=== PATIENT | male | born 1935 | race Caucasian/White ===

== ENCOUNTER 2017-09-20 07:39 | Emergency (ER) | payer MEDICARE, BC ==
[2017-09-20] MEDS ORDERED: Lidocaine 2% Jelly 10 ML Urojet MUCMEM ONE (08:39)
--- NOTE | 2017-09-20 08:47 | EDM.PDOC ---
ED HPI GENERAL MEDICAL PROBLEM - General Chief Complaint: Genitourinary Problem Stated Complaint: CANNOT PASS URINE Time Seen by Provider: 09/20/17 08:47 Source of Information: Reports: Patient History Limitations: Reports: No Limitations - History of Present Illness INITIAL COMMENTS - FREE TEXT/NARRATIVE: pt arrived unable to void. He has been passing blood for the past 3days. He has done this off and on t in the past few monthes. He was seen in [place] yesterday and had a cat scan of the abdoman which showed a clot or mas in the bladder. He was still voidimng at that time. He is quite uncomfortble . Onset: Gradual, Other (past 2-3 days. ) Duration: Hour(s): Location: Reports: Other ( Uncomfortable over the bladder. ) - Related Data Allergies Allergy/AdvReac Type Severity Reaction Status Date / Time chlorthalidone Allergy Intermediate Muscle Verified 09/20/17 08:05 Aches finasteride Allergy Intermediate Muscle Verified 09/20/17 08:05 Aches hydrochlorothiazide Allergy Intermediate Muscle Verified 09/20/17 08:05 Aches sulfamethoxazole Allergy Intermediate Muscle Verified 09/20/17 08:05 [From Bactrim] Aches trimethoprim [From Bactrim] Allergy Intermediate Muscle Verified 09/20/17 08:05 Aches Home Meds: Home Meds Aspirin 81 mg PO DAILY 02/10/13 [History] Fexofenadine [Leigha] 180 mg PO DAILY 02/10/13 [History] LORazepam [Ativan] 1 mg PO Q8H PRN 02/10/13 [History] Lisinopril 20 mg PO BID 02/10/13 [History] Omeprazole 20 mg PO DAILY 02/10/13 [History] Simvastatin [Zocor] 20 mg PO BEDTIME 02/10/13 [History] amLODIPine [Norvasc] 5 mg PO BID 02/10/13 [History] metFORMIN HCl [Metformin HCl] 500 mg PO BID 02/10/13 [History] Metoprolol Succinate [Toprol XL] 50 mg PO DAILY 05/03/13 [History] Acetaminophen [Tylenol] 650 mg PO Q6H PRN 11/01/15 [History] Ydxdc-B-Jydlpbenyymen [Beano] 1 tab PO ASDIRECTED PRN 11/01/15 [History] Past Medical History HEENT History: Reports: Allergic Rhinitis, Hard of Hearing, Impaired Vision Cardiovascular History: Reports: High Cholesterol, Hypertension Gastrointestinal History: Reports: Colon Polyp, GERD Genitourinary History: Reports: BPH, Renal Calculus Musculoskeletal History: Reports: Back Pain, Chronic, Fracture, Osteoarthritis Psychiatric History: Reports: Anxiety Endocrine/Metabolic History: Reports: Diabetes, Type II Oncologic (Cancer) History: Reports: Other (See Below) Other Oncologic History: colon - Infectious Disease History Infectious Disease History: Reports: Chicken Pox, Measles, Mumps - Past Surgical History GI Surgical History: Reports: Colonoscopy, Other (See Below) Other GI Surgeries/Procedures: colon resection Male Surgical History: Reports: Prostate Biopsy, TURP-Transurethral Resection of Prostate Social & Family History - Tobacco Use Smoking Status *Q: Current Every Day Smoker Years of Tobacco use: 50 Packs/Tins Daily: 0.5 - Recreational Drug Use Recreational Drug Use: No ED ROS GENERAL - Review of Systems Review Of Systems: See Below Constitutional: Reports: No Symptoms HEENT: Reports: No Symptoms Respiratory: Reports: No Symptoms Cardiovascular: Reports: No Symptoms Endocrine: Reports: No Symptoms GI/Abdominal: Reports: Other (pain over the bladder. ) : Reports: Hematuria, Urinary Retention Musculoskeletal: Reports: No Symptoms Skin: Reports: No Symptoms ED EXAM, GI/ABD - Physical Exam Exam: See Below Text/Narrative:: Pt arrived uncomfortable because he was not able to void. He was at the [facility] yesterday and had a cat scan of the abdoman which showed a filling defect in the bladder which may have been clot but could be tissue. He was sent home and he was unable to void. Exam Limited By: No Limitations General Appearance: Alert, Moderate Distress Ears: Normal TMs Nose: Normal Inspection Throat/Mouth: Normal Inspection Head: Atraumatic Neck: Normal Inspection Respiratory/Chest: No Respiratory Distress Cardiovascular: Regular Rate, Rhythm GI/Abdominal Exam: Other (Pt is tender over the bladder. ) (Male) Exam: Other ( Urine is very bloody and he is only able to void in small ampounts. ) Rectal (Males) Exam: Deferred Extremities: Normal Inspection Neurological: Alert, Oriented, Normal Cognition Psychiatric: Normal Affect Course - Vital Signs Last Recorded V/S: Last Vital Signs Temp 36.7 C 09/20/17 10:18 Pulse 59 L 09/20/17 10:18 Resp 16 09/20/17 10:18 BP 133/62 09/20/17 10:18 Pulse Ox 95 09/20/17 10:18 - Orders/Labs/Meds Labs: Laboratory Tests 09/20/17 09/20/17 Range/Units 08:53 08:53 WBC 10.8 (4.5-11.0) K/uL RBC 3.98 L (4.30-5.90) M/uL Hgb 12.0 D (12.0-15.0) g/dL Hct 35.3 L (40.0-54.0) % MCV 89 (80-98) fL MCH 30 (27-31) pg MCHC 34 (32-36) % Plt Count 318 (150-400) K/uL Neut % (Auto) 76 H (36-66) % Lymph % (Auto) 16 L (24-44) % [place] % (Auto) 8 H (2-6) % Eos % (Auto) 0 L (2-4) % Baso % (Auto) 0 (0-1) % Sodium 125 L (140-148) mmol/L Potassium 4.4 (3.6-5.2) mmol/L Chloride 91 L (100-108) mmol/L Carbon Dioxide 24 (21-32) mmol/L Anion Gap 14.4 H (5.0-14.0) mmol/L BUN 15 (7-18) mg/dL Creatinine 0.9 (0.8-1.3) mg/dL Est Cr Clr Drug Dosing 63.32 mL/min Estimated GFR (MDRD) > 60 (>60) Glucose 156 H (74-106) mg/dL Calcium 8.6 (8.5-10.1) mg/dL Meds: Medications Discontinued Medications Generic Name Dose Route Start Last Admin Trade Name Freq PRN Reason Stop Dose Admin Lidocaine HCl 10 ml 09/20/17 08:39 09/20/17 09:27 Xylocaine 2% Jelly MUCMEM 09/20/17 08:40 10 ml ONETIME ONE Administration - Re-Assessments/Exams Free Text/Narrative Re-Assessment/Exam: 09/20/17 10:37 Pt did void a very small amount and it was very bloody. A attempt was made to put in a 3 way cath to irrigate and it would not pass--size 20. A 16 cath with a tapered tip did pass. His bladder was irrigated and his urine appears to be draining well. Dr ramos was consulted regarding the situation. 09/20/17 10:55pt was found to have hyponatremia in [place] and he continues to have a low na. Departure - Departure Time of Disposition: 10:40 Disposition: Home, Self-Care 01 Condition: Fair Clinical Impression: Hematuria, Urinary retention, Bladder filling defect, Hyponatremia - Discharge Information Referrals: Mode Hussein MD [Primary Care Provider] - Forms: ED Department Discharge Care Plan Goals: If [place] drains well over the week end call urology office early Friday am and indicate that he needs to be seen soon for a cysto. Dr Ramos --Urologist was consulted and he felt the pt could be seen on Friday if the cath continues to drain over the weekend. If it does get blocked up and is not draining then he should go to The ER in [place] and Dr Ramos needs to be called for a cysto and care. leg bag, norco 5/325 q6h prn for pain. Push fluids.
[2017-09-20] MEDS ORDERED: Lidocaine 2% Jelly 10 ML Urojet ONE (09:51)
[2017-09-20 10:19] VITALS: BP 133/62
== END 2017-09-20 11:40 | disposition home or self-care (01) ==
LOC: JP.ED 07:39
DX: R33.9 Retention of urine, unspecified (principal); R31.9 Hematuria, unspecified; R93.41 Abnormal radiologic findings on diagnostic imaging of renal pelvis, ureter, or bladder; E87.1 Hypo-osmolality and hyponatremia; F17.210 Nicotine dependence, cigarettes, uncomplicated; E11.9 Type 2 diabetes mellitus without complications; I10 Essential (primary) hypertension; E78.00 Pure hypercholesterolemia, unspecified; M19.90 Unspecified osteoarthritis, unspecified site; K21.9 Gastro-esophageal reflux disease without esophagitis; Z79.82 Long term (current) use of aspirin; Z79.84 Long term (current) use of oral hypoglycemic drugs; Z79.899 Other long term (current) drug therapy; Z88.2 Allergy status to sulfonamides; Z88.1 Allergy status to other antibiotic agents; Z88.8 Allergy status to other drugs, medicaments and biological substances
CPT/HCPCS: 36415; 51798; 80048; 85025; 99284-25

== ENCOUNTER 2017-10-07 16:40 | Emergency (ER) | payer MEDICARE, BC ==
--- NOTE | 2017-10-07 18:12 | EDM.PDOC ---
ED HPI GENERAL MEDICAL PROBLEM - General Chief Complaint: Genitourinary Problem Stated Complaint: BLOOD URINE Time Seen by Provider: 10/07/17 17:00 Source of Information: Reports: Patient, Family History Limitations: Reports: No Limitations - History of Present Illness INITIAL COMMENTS - FREE TEXT/NARRATIVE: 82-year-old male who recently underwent some genitourinary procedures has been avoiding activity for the past 2 weeks, but apparently got the okay from the urology department to become more active so today he did yard work and was bouncing on the tractor etc. and developed hematuria. He has now lower abdominal pain, any bladder distention, and gross hematuria but decreased output. No fevers or chills. Severity: Moderate Associated Symptoms: Denies: Chest Pain, Malaise, Shortness of Breath Bladder Pain Score (Numeric/FACES): 4 - Related Data Allergies Allergy/AdvReac Type Severity Reaction Status Date / Time chlorthalidone Allergy Intermediate Muscle Verified 10/07/17 16:58 Aches finasteride Allergy Intermediate Muscle Verified 10/07/17 16:58 Aches hydrochlorothiazide Allergy Intermediate Muscle Verified 10/07/17 16:58 Aches sulfamethoxazole Allergy Intermediate Muscle Verified 10/07/17 16:58 [From Bactrim] Aches trimethoprim [From Bactrim] Allergy Intermediate Muscle Verified 10/07/17 16:58 Aches Home Meds: Home Meds Aspirin 81 mg PO DAILY 02/10/13 [History] Fexofenadine [Leigha] 180 mg PO DAILY 02/10/13 [History] LORazepam [Ativan] 1 mg PO Q8H PRN 02/10/13 [History] Lisinopril 20 mg PO BID 02/10/13 [History] Omeprazole 20 mg PO DAILY 02/10/13 [History] Simvastatin [Zocor] 20 mg PO BEDTIME 02/10/13 [History] amLODIPine [Norvasc] 5 mg PO BID 02/10/13 [History] metFORMIN HCl [Metformin HCl] 500 mg PO BID 02/10/13 [History] Metoprolol Succinate [Toprol XL] 50 mg PO DAILY 05/03/13 [History] Acetaminophen [Tylenol] 650 mg PO Q6H PRN 11/01/15 [History] Yruti-L-Ooclhreouavra [Beano] 1 tab PO ASDIRECTED PRN 11/01/15 [History] Past Medical History HEENT History: Reports: Allergic Rhinitis, Hard of Hearing, Impaired Vision Cardiovascular History: Reports: High Cholesterol, Hypertension Gastrointestinal History: Reports: Colon Polyp, GERD Genitourinary History: Reports: BPH, Renal Calculus Musculoskeletal History: Reports: Back Pain, Chronic, Fracture, Osteoarthritis Psychiatric History: Reports: Anxiety Endocrine/Metabolic History: Reports: Diabetes, Type II Oncologic (Cancer) History: Reports: Other (See Below) Other Oncologic History: colon - Infectious Disease History Infectious Disease History: Reports: Chicken Pox, Measles, Mumps - Past Surgical History GI Surgical History: Reports: Colonoscopy, Other (See Below) Other GI Surgeries/Procedures: colon resection Male Surgical History: Reports: Prostate Biopsy, TURP-Transurethral Resection of Prostate ED ROS GENERAL - Review of Systems Review Of Systems: See Below Constitutional: Denies: Fever, Chills Respiratory: Denies: Shortness of Breath Cardiovascular: Denies: Chest Pain GI/Abdominal: Denies: Abdominal Pain Skin: Reports: Pallor Neurological: Denies: Headache ED EXAM, RENAL/ - Physical Exam Exam: See Below Exam Limited By: No Limitations General Appearance: Alert, Mild Distress (Looks uncomfortable) Respiratory/Chest: No Respiratory Distress Cardiovascular: Regular Rate, Rhythm GI/Abdominal: Distended (Patient has distention of the lower abdomen with palpation tenderness likely bladder distention) (Male) Exam: Suprapubic Fullness Neurological: Alert, Oriented Psychiatric: Normal Affect, Normal Mood Skin Exam: Warm, Dry, Pallor Course - Vital Signs Last Recorded V/S: Last Vital Signs Temp 98.4 F 10/07/17 18:24 Pulse 91 10/07/17 18:24 Resp 18 10/07/17 18:24 BP 172/71 H 10/07/17 18:24 Pulse Ox 91 L 10/07/17 18:24 - Orders/Labs/Meds Labs: Laboratory Tests 10/07/17 Range/Units 18:26 WBC 9.7 (4.5-11.0) K/uL RBC 3.77 L (4.30-5.90) M/uL Hgb 11.3 L (12.0-15.0) g/dL Hct 34.0 L (40.0-54.0) % MCV 90 (80-98) fL MCH 30 (27-31) pg MCHC 33 (32-36) % Plt Count 324 (150-400) K/uL Neut % (Auto) 80 H (36-66) % Lymph % (Auto) 12 L (24-44) % [place] % (Auto) 8 H (2-6) % Eos % (Auto) 1 L (2-4) % Baso % (Auto) 0 (0-1) % - Re-Assessments/Exams Free Text/Narrative Re-Assessment/Exam: 10/07/17 18:09 A three-way catheter was attempted to play placed into the bladder but was unsuccessful. A bladder scan did confirm there was over a liter of fluid in the bladder. A coud catheter was then successfully placed but after 300 mL of gross blood and clots was removed it stopped draining. The patient did feel better however. I discussed this with urology in [place], they recommended just leaving the catheter in and transferring the patient to [place] for urology consultation. A CBC was obtained. Hemoglobin 11.3, copies of labs were sent with the patient. Departure - Departure Time of Disposition: 19:01 Disposition: DC/Tfer to Acute Hospital 02 Condition: Fair Clinical Impression: Gross hematuria - Discharge Information Referrals: Mode Hussein MD [Primary Care Provider] - Forms: ED Department Discharge
[2017-10-07 18:25] VITALS: BP 172/71
== END 2017-10-07 19:01 ==
LOC: JP.ED 16:40
DX: R31.0 Gross hematuria (principal); E11.9 Type 2 diabetes mellitus without complications; E78.00 Pure hypercholesterolemia, unspecified; I10 Essential (primary) hypertension; Z88.8 Allergy status to other drugs, medicaments and biological substances; Z79.899 Other long term (current) drug therapy; Z88.1 Allergy status to other antibiotic agents; Z88.2 Allergy status to sulfonamides; Z79.82 Long term (current) use of aspirin; Z79.84 Long term (current) use of oral hypoglycemic drugs; Z87.442 Personal history of urinary calculi
CPT/HCPCS: 36415; 51702; 51798; 85025; 99283-25; 99284-25